=== PATIENT | female | born 1945 | race Two or more races ===

== ENCOUNTER 2022-08-30 17:24 | Emergency (ER) | payer OTHER ==
[~2022-08-30] VITALS: Ht 154.9 cm; Wt 68.5 kg
[~2022-08-30 17:24] MED LIST: HYZAAR 100/25 T1 TAB PO; SYNTHROID112 MCG PO
[2022-08-30] MEDS ORDERED: DICY20TA PO (22:41)
[2022-08-30] MEDS ORDERED: LEVSIN0.125 MG PO (22:41)
== END 2022-08-30 22:46 | disposition home or self-care (01) ==
LOC: ER 17:24
DX: K52.9 Noninfective gastroenteritis and colitis, unspecified (principal); R11.10 Vomiting, unspecified; I10 Essential (primary) hypertension; K57.32 Diverticulitis of large intestine without perforation or abscess without bleeding; E03.9 Hypothyroidism, unspecified; Z88.6 Allergy status to analgesic agent; Z88.8 Allergy status to other drugs, medicaments and biological substances; K57.30 Diverticulosis of large intestine without perforation or abscess without bleeding; Z20.822 Contact with and (suspected) exposure to COVID-19

== ENCOUNTER 2023-01-16 12:11 | Emergency (ER) | payer OTHER ==
[~2023-01-16] VITALS: Ht 154.9 cm; Wt 86.2 kg
[~2023-01-16 12:11] MED LIST changes: +DICY20TA PO; +LEVSIN0.125 MG PO
== END 2023-01-16 17:25 | disposition home or self-care (01) ==
LOC: ER 12:11
DX: R42 Dizziness and giddiness (principal); E11.9 Type 2 diabetes mellitus without complications

== ENCOUNTER 2023-08-24 08:35 | Outpatient (CLI) | payer OTHER | END 2023-08-24 08:42 | disposition home or self-care (01) | LOC: TOM 08:35 | PROVIDERS: ATTEND Internal Medicine Gastroenterology | DX: K56.609 Unspecified intestinal obstruction, unspecified as to partial versus complete obstruction (principal); C18.9 Malignant neoplasm of colon, unspecified; K57.52 Diverticulitis of both small and large intestine without perforation or abscess without bleeding; K59.00 Constipation, unspecified ==

== ENCOUNTER 2024-07-21 13:58 | Emergency (ER) | payer OTHER ==
[~2024-07-21] VITALS: Ht 152.4 cm; Wt 84.4 kg
[2024-07-21] MEDS ORDERED: VOLTAREN ARTHRI20 GM PO (15:39)
[2024-07-21] MEDS ORDERED: BUTALB/ACETAMINOPHEN/CAFFEINE 1 TAB TABLET PO ONE ×2 (17:15→18:09)
== END 2024-07-21 20:11 | disposition home or self-care (01) ==
LOC: ER 14:00
DX: S09.8XXA Other specified injuries of head, initial encounter (principal); W19.XXXA Unspecified fall, initial encounter; Y93.89 Activity, other specified; Y92.89 Other specified places as the place of occurrence of the external cause; Y99.8 Other external cause status; I10 Essential (primary) hypertension; Z91.013 Allergy to seafood

== ENCOUNTER 2024-09-25 15:04 | Inpatient (IN) | payer OTHER ==
[~2024-09-25] VITALS: Ht 152.4 cm; Wt 89.8 kg
[~2024-09-25 15:04] MED LIST changes: +VOLTAREN ARTHRI20 GM PO
[2024-09-25] MEDS ORDERED: ENOXAPARIN SODIUM 80 MG/0.8 ML SYRINGE SUBCUTANEO ONE ×2 (15:30→15:37)
[2024-09-25] MEDS ORDERED: ENOXAPARIN SODIUM 80 MG/0.8 ML SYRINGE SUBCUTANEO SCH (15:32)
[2024-09-25] MEDS ORDERED: ASPIRIN 81 MG TAB.CHEW PO SCH (15:33)
[2024-09-25] MEDS ORDERED: DILTIAZEM HCL 25 MG/5 ML VIAL IV ONE ×2 (15:36→16:45)
[2024-09-25] MEDS ORDERED: ADENOSINE 3 MG/ML VIAL IV ONE ×3 (15:44→15:55)
[2024-09-25] MEDS ORDERED: DILTIAZEM HCL 125MG/25ML VIAL IV SCH (15:45)
[2024-09-25] MEDS ORDERED: AMIODARONE HCL 50 MG/ML AMPUL IV ONE ×2 (15:57→16:45)
[2024-09-25] MEDS ORDERED: AMIODARONE IN DEXTROSE,ISO-OSM 360 MG/200 ML IV.SOLN IV ONE ×2 (15:57→21:11)
[2024-09-25] MEDS ORDERED: LORazepam 1 MG TABLET PO ONE (16:00)
[2024-09-25] MEDS ORDERED: AMIODARONE HCL 50 MG/ML AMPUL IV SCH (16:00)
[2024-09-25 16:25] LABS: HEMATOCRIT 44.3 % (36.0-45.00); HEMOGLOBIN 14.6 g/dL (12.0-15.00); MEAN CELL VOLUME 93.9 fL (80.00-100.00); MEAN CORPUSCULAR HEMOGLOBIN 30.9 pg (27.00-32.0); MEAN CORPUSCULAR HGB CONC 32.9 g/dl (32.0-36.0); PLATELET COUNT 218 K/uL (150-450); RED BLOOD COUNT 4.72 M/uL (4.00-6.00); RED CELL DISTRIBUTION WIDTH 14.1 % (11.5-14.5)
[2024-09-25 16:34] LABS: INR 1.04; PARTIAL THROMBOPLASTIN TIME 27.9 SECONDS (22.0-34.0); PROTHROMBIN TIME 11.3 SECONDS (9.0-11.5)
[2024-09-25] MEDS ORDERED: NALOXONE HCL 0.4 MG/ML AMPUL ONE (16:52)
[2024-09-25] MEDS ORDERED: FLUMAZENIL 0.5 MG/5 ML ML IV ONE ×2 (16:54→17:30)
[2024-09-25 17:05] LABS: BILIRUBIN TOTAL 0.46 mg/dL (0.3-1.2); CALCIUM 9.5 mg/dL (8.5-10.1); CREATININE SERUM 1.15 mg/dL (0.55-1.02); GFR 45.75; GLOBULINA 4.1 G/DL (2.4-3.5); POTASSIUM 3.53 mEq/L (3.5-5.1); TOTAL PROTEIN 8.1 gm/dL (6.4-8.2)
[2024-09-25] MEDS ORDERED: MIDAZOLAM HCL/PF 5 MG/ML VIAL IV ONE (17:30)
[2024-09-25] MEDS ORDERED: 0.9 % SODIUM CHLORIDE 1,000 ML IV SCH (19:15)
[2024-09-25] MEDS ORDERED: FAMOTIDINE/PF 20 MG in 0.9 % SODIUM CHLORIDE 8 ML IV PUSH SCH (19:18)
[2024-09-25] MEDS ORDERED: ATORVASTATIN CALCIUM 40 MG TABLET PO SCH (19:18)
[2024-09-25] MEDS ORDERED: ACETAMINOPHEN 500 MG GEL..CAP PO PRN (19:30)
[2024-09-25] MEDS ORDERED: FAMOTIDINE/PF 20 MG/2 ML VIAL ONE (19:43)
[2024-09-25 20:02] VITALS: BP 154/63; O2SAT 99
[2024-09-25 21:30] VITALS: BP 158/83; O2SAT 99
[2024-09-25 22:12] VITALS: BP 152/64; O2SAT 96
[2024-09-25 23:14] LABS: URINE APPEARANCE Clear; URINE BILIRRUBIN Negative (NEGATIVE); URINE BLOOD Trace; URINE COLOR Yellow; URINE GLUCOSE Negative (NEGATIVE); URINE KETONE Negative (NEGATIVE); URINE LEUKOCYTE Small; URINE NITRATE Negative; URINE PROTEIN Negative (NEGATIVE); URINE UROBILINOGEN 0.2 E.U./dl
[2024-09-25 23:17] VITALS: BP 137/55; O2SAT 98
[2024-09-25 23:18] LABS: URINE BACTERIA 4953.3 uL (0.0-1933); URINE EPITHELIAL CELLS 15.1 uL (0.0-38.8); URINE RBC 35.4 uL (0.0-20.8); URINE WBC 9.1 uL (0.0-23.2)
[2024-09-26] VITALS (13 sets, daily range): BP systolic 93–160; BP diastolic 45–76; O2SAT 97–100
[2024-09-26] MEDS ORDERED: ENOXAPARIN SODIUM 80 MG/0.8 ML SYRINGE SUBCUTANEO SCH (05:00)
[2024-09-26] MEDS ORDERED: LEVOTHYROXINE SODIUM 88 MCG TABLET PO SCH (06:00)
[2024-09-26] MEDS ORDERED: ENOXAPARIN SODIUM 80 MG/0.8 ML SYRINGE SUBCUTANEO ONE (06:28)
[2024-09-26 07:20] LABS: CHOL HDL RATIO 4.8 (0-5.0)
[2024-09-26] MEDS ORDERED: AMIODARONE HCL 900 MG in DEXTROSE 5 % IN WATER 500 ML IV SCH (07:45)
[2024-09-27 00:44] VITALS: BP 134/67; O2SAT 97
[2024-09-27 00:45] VITALS: O2SAT 96
[2024-09-27 05:35] VITALS: O2SAT 90
[2024-09-27] MEDS ORDERED: FAMOTIDINE/PF 20 MG/2 ML VIAL ONE (08:23)
[2024-09-27 08:34] VITALS: O2SAT 93
[2024-09-27] MEDS ORDERED: APIXABAN 5 MG TABLET PO SCH (09:00)
[2024-09-27] MEDS ORDERED: FF) FLECAINIDE ACETATE 50MG TAB PO SCH (09:00)
[2024-09-27] MEDS ORDERED: ENOXAPARIN SODIUM 40 MG/0.4 ML SYRINGE SUBCUTANEO SCH (09:00)
[2024-09-27] MEDS ORDERED: AMIODARONE HCL 200 MG TABLET PO SCH (09:00)
[2024-09-27 09:23] VITALS: BP 165/58
[2024-09-27] MEDS ORDERED: FLECAINIDE ACET50 MG PO (13:39)
[2024-09-27] MEDS ORDERED: LEVOTHYROXINE88 MCG PO (13:39)
[2024-09-27] MEDS ORDERED: ELIQUIS5 MG PO (13:39)
[2024-09-27] MEDS ORDERED: LIPITOR40 M1 PO (13:39)
[2024-09-28] MEDS ORDERED: AMIODARONE HCL 200 MG TABLET PO SCH (09:00)
== END 2024-09-27 14:10 | disposition home or self-care (01) | DRG 310 ==
LOC: ER 15:05 → ICU-2 19:54 → MEDI 09-26 17:17
PROVIDERS: Emergency Medicine; General Practice; ADMIT Internal Medicine; ATTEND Internal Medicine
PROC: B246ZZZ Ultrasonography of Right and Left Heart (ICD-10-PCS; principal; 2024-09-25)
PROC: 4A12X4Z Monitoring of Cardiac Electrical Activity, External Approach (ICD-10-PCS; 2024-09-27)
DX: I48.20 Chronic atrial fibrillation, unspecified (principal); I47.29 Other ventricular tachycardia; I10 Essential (primary) hypertension; E03.9 Hypothyroidism, unspecified; I45.6 Pre-excitation syndrome

== ENCOUNTER 2025-03-08 10:23 | Emergency (ER) | payer OTHER ==
[~2025-03-08] VITALS: Ht 152.4 cm; Wt 84.4 kg
[~2025-03-08 10:23] MED LIST changes: +ELIQUIS5 MG PO; +FLECAINIDE ACET50 MG PO; +LEVOTHYROXINE88 MCG PO; +LIPITOR40 M1 PO
[2025-03-08] MEDS ORDERED: ORPHENADRINE CITRATE 30 MG/ML AMPUL ONE (11:26)
[2025-03-08] MEDS ORDERED: DEXAMETHASONE SODIUM PHOSPHATE 4 MG/ML VIAL ONE (11:26)
[2025-03-08] MEDS ORDERED: ACETAMINOPHEN 500 MG GEL..CAP PO ONE ×2 (11:26→11:30)
[2025-03-08] MEDS ORDERED: ORPHENADRINE CITRATE 30 MG/ML AMPUL IM ONE (11:30)
[2025-03-08] MEDS ORDERED: DEXAMETHASONE SODIUM PHOSPHATE 4 MG/ML VIAL IM ONE (11:30)
== END 2025-03-08 12:36 | disposition home or self-care (01) ==
LOC: ER 10:23
DX: M54.50 Low back pain, unspecified (principal); E03.9 Hypothyroidism, unspecified; Z91.013 Allergy to seafood
CPT/HCPCS: 96372; 99282; J1100; J2360